=== PATIENT | male | born 1955 | race Caucasian/White ===

== ENCOUNTER 2018-02-12 07:14 | Outpatient (CLI) | payer OTHER ==
[~2018-02-12 07:14] MED LIST: MOTRIN800 MG PO
== END 2018-02-12 07:25 | disposition home or self-care (01) ==
LOC: SONOGRAMA 07:14
DX: B18.2 Chronic viral hepatitis C (principal)

== ENCOUNTER 2022-04-24 09:23 | Outpatient (CLI) | payer OTHER | END 2022-04-24 09:34 | disposition home or self-care (01) | LOC: RAD 09:23 | PROVIDERS: ATTEND Specialist | DX: M79.671 Pain in right foot (principal) ==